=== PATIENT | male | born 1995 | race Two or more races ===

== ENCOUNTER 2018-02-02 15:15 | Inpatient (IN) | payer OTHER ==
[~2018-02-02] VITALS: Ht 165.1 cm; Wt 90.0 kg
[2018-02-02] MEDS ORDERED: SODIUM CHLORIDE 0.9% 1,000 ML IV ONE (15:29)
[2018-02-02 16:16] LABS: Basophils # (auto) 0 uL; Basophils % (auto) 0.2 % (0.0-2.0); Eosinophils # (auto) 0 uL; Hemoglobin 14.7 g/dL (13.5-17.5); Mean Corpuscular Hemoglobin 31.5 pg (28.0-32.0); Monocytes # (auto) 0.6 uL; Neutrophils # (auto) 13.2 uL; Neutrophils % (auto) 88.8 % (37.0-80.0); Platelet Count (auto) 285 10^3/uL (140-450); Red Blood Cells 4.67 10^6/uL (4.5-5.90); Red Cell Distribution Width 12.4 % (11.8-14.3); White Blood Cell 14.9 10^3/uL (4.4-10.8)
[2018-02-02 16:37] LABS: Albumin 4.5 g/dL (3.4-5.0); Calcium 9.3 mg/dL (8.5-10.1); Potassium 3.9 mmol/L (3.5-5.1)
[2018-02-02 16:38] LABS: INR 0.97 (0.9-1.15); Partial Thromboplastin Time 26.5 sec (23.78-33.04); Prothrombin Time 10.4 sec (9.27-12.13)
[2018-02-02 16:39] LABS: BUN/Creatinine Ratio 10.4; Bilirubin, Total 0.4 mg/dL (0.2-1.0); Total Protein 8.8 g/dL (6.4-8.2)
[2018-02-02] MEDS ORDERED: MORPHINE SULFATE 4 MG/ML SYR/VIAL IV ONE (16:45)
[2018-02-02] MEDS ORDERED: ONDANSETRON HCL 4 MG/2 ML VIAL IV ONE (16:45)
[2018-02-02] MEDS ORDERED: ENOXAPARIN SOD 40 MG/0.4 ML SYRINGE SC ONE (18:30)
[2018-02-02] MEDS: D5W/SOD CHL 0.45% 1,000 ML IV SCH ×2 (19:04→22:47)
[2018-02-02 21:15] VITALS: BP 128/55
[2018-02-02] MEDS: MORPHINE SULFATE 4 MG/ML SYR/VIAL IV PRN (21:26)
[2018-02-02 21:30] VITALS: BP 128/55
[2018-02-03] MEDS: MORPHINE SULFATE 4 MG/ML SYR/VIAL IV PRN ×5 (01:55→23:43)
[2018-02-03 05:39] VITALS: BP 96/46
[2018-02-03] MEDS: ENOXAPARIN SOD 40 MG/0.4 ML SYRINGE SC SCH ×2 (05:56→07:33)
[2018-02-03] MEDS: D5W/SOD CHL 0.45% 1,000 ML IV SCH ×3 (06:08→20:55)
[2018-02-03 06:40] VITALS: BP 107/53
[2018-02-03 09:00] VITALS: BP 120/72
[2018-02-03] MEDS: PANTOPRAZOLE 40 MG TAB PO SCH (10:13)
[2018-02-03 10:43] LABS: Basophils # (auto) 0 uL; Basophils % (auto) 0.3 % (0.0-2.0); Eosinophils # (auto) 0 uL; Eosinophils % (auto) 0.2 % (0.0-7.0); Hemoglobin 13.3 g/dL (13.5-17.5); Lymphocytes # (auto) 1.4 uL; Lymphocytes % (auto) 14.7 % (10.0-50.0); Mean Corpuscular Hgb Conc. 34.1 g/dL (32.0-36.0); Mean Corpuscular Volume 90.8 fL (80.0-100.0); Monocytes # (auto) 0.9 uL; Monocytes % (auto) 8.9 % (0.0-12.0); Neutrophils # (auto) 7.5 uL; Neutrophils % (auto) 75.9 % (37.0-80.0); Platelet Count (auto) 256 10^3/uL (140-450); Red Cell Distribution Width 12.2 % (11.8-14.3); White Blood Cell 9.8 10^3/uL (4.4-10.8)
[2018-02-03 13:00] VITALS: BP 108/55
[2018-02-03 17:00] VITALS: BP 114/62
[2018-02-03 22:00] VITALS: BP 128/74
[2018-02-04] MEDS: D5W/SOD CHL 0.45% 1,000 ML IV SCH ×3 (03:35→18:17)
[2018-02-04 05:02] VITALS: BP 103/47
[2018-02-04] MEDS ORDERED: fentaNYL CITRATE 100 MCG/2 ML VL ONE (05:29)
[2018-02-04] MEDS ORDERED: ROCURONIUM 10MG/ML 10ML VIAL IV ONE (05:29)
[2018-02-04] MEDS ORDERED: fentaNYL CITRATE 10 ML ONE (05:29)
[2018-02-04] MEDS ORDERED: SODIUM CHLORIDE LOCK 10 ML ONE (05:30)
[2018-02-04] MEDS ORDERED: ONDANSETRON HCL 4 MG/2 ML VIAL ONE (05:30)
[2018-02-04] MEDS ORDERED: PROPOFOL 10 MG/ML 20 ML IV ONE (05:30)
[2018-02-04] MEDS ORDERED: MIDAZOLAM HCL 1MG/1ML-2 ML VIAL ONE (05:30)
[2018-02-04] MEDS ORDERED: MEPERIDINE HCL (50 MG/ML) 1 ML VIAL ONE (05:34)
[2018-02-04 05:45] LABS: Basophils # (auto) 0 uL; Basophils % (auto) 0.3 % (0.0-2.0); Eosinophils # (auto) 0 uL; Eosinophils % (auto) 0.3 % (0.0-7.0); Hematocrit 39.9 % (41.0-53.0); Lymphocytes # (auto) 1.2 uL; Mean Corpuscular Hemoglobin 31.8 pg (28.0-32.0); Mean Corpuscular Hgb Conc. 35.1 g/dL (32.0-36.0); Mean Corpuscular Volume 90.6 fL (80.0-100.0); Monocytes % (auto) 7.4 % (0.0-12.0); Neutrophils # (auto) 11.4 uL; Nucleated Red Blood Cells % 0.1 %; Platelet Count (auto) 258 10^3/uL (140-450); Red Cell Distribution Width 12.4 % (11.8-14.3); White Blood Cell 13.8 10^3/uL (4.4-10.8)
[2018-02-04] MEDS ORDERED: ceFAZolin 1GM/50ML 100 ML IV ONE (05:52)
[2018-02-04] MEDS: MORPHINE SULFATE 4 MG/ML SYR/VIAL IV PRN ×2 (06:30→13:45)
[2018-02-04 06:56] LABS: Urine Bacteria NONE SEEN /hpf (None Seen); Urine Blood Negative /uL (Negative); Urine Specific Gravity 1.005 (1.001-1.035); Urine WBC <1 /hpf (0 - 3)
[2018-02-04 08:25] VITALS: BP 111/54
[2018-02-04] MEDS: ENOXAPARIN SOD 40 MG/0.4 ML SYRINGE SC SCH (10:00)
[2018-02-04] MEDS: PANTOPRAZOLE 40 MG TAB PO SCH (10:00)
[2018-02-04 11:50] VITALS: BP 113/61
[2018-02-04] MEDS: ACETAMINOPHEN 325 MG TAB PO PRN (13:06)
[2018-02-04] MEDS ORDERED: IOHEXOL 350 MG/ML 100ML IJ ONE (13:43)
[2018-02-04 16:00] VITALS: BP 117/63
[2018-02-04] MEDS: HYDROmorphone HCL 2 MG/ML VL IV PRN (20:07)
[2018-02-04] MEDS: PIPERACILLIN-TAZO 4.5GM 100 ML IV SCH (21:00)
[2018-02-04 21:18] VITALS: BP 118/64
[2018-02-04 21:57] VITALS: BP 184/64
[2018-02-05] MEDS: HYDROmorphone HCL 2 MG/ML VL IV PRN ×5 (01:22→22:34)
[2018-02-05] MEDS: ACETAMINOPHEN 325 MG TAB PO PRN ×2 (04:22→13:18)
[2018-02-05 05:12] VITALS: BP 121/69
[2018-02-05] MEDS: PIPERACILLIN-TAZO 4.5GM 100 ML IV SCH ×3 (05:16→21:12)
[2018-02-05 07:56] VITALS: BP 116/62
[2018-02-05 12:23] VITALS: BP 121/64
[2018-02-05 17:00] VITALS: BP 111/57
[2018-02-05 21:33] VITALS: BP 114/71
[2018-02-05] MEDS: ALBUTEROL SULF 2.5 MG/0.5ML(0.5%) NEB SOLN NEB SCH (22:14)
[2018-02-06] MEDS: HYDROmorphone HCL 2 MG/ML VL IV PRN ×5 (03:01→22:40)
[2018-02-06] MEDS: ALBUTEROL SULF 2.5 MG/0.5ML(0.5%) NEB SOLN NEB SCH ×7 (03:03→22:00)
[2018-02-06 05:17] VITALS: BP 114/65
[2018-02-06] MEDS: PIPERACILLIN-TAZO 4.5GM 100 ML IV SCH ×2 (05:38→14:25)
[2018-02-06 09:04] VITALS: BP 106/61
[2018-02-06 13:06] VITALS: BP 112/67
[2018-02-06] MEDS ORDERED: VANCOMYCIN PER PHARMACY 0 MG IV SCH (15:30)
[2018-02-06 17:00] VITALS: BP 120/65
[2018-02-06] MEDS ORDERED: ENOXAPARIN SOD 40 MG/0.4 ML SYRINGE SC ONE (17:30)
[2018-02-06] MEDS: FUROSEMIDE 20 MG/2 ML VIAL IV SCH (18:06)
[2018-02-06] MEDS: VANCOMYCIN 1,500 MG in D5W 5% 250 ML IV SCH (18:07)
[2018-02-06 22:00] VITALS: BP 110/68
[2018-02-06] MEDS ORDERED: ENOXAPARIN SOD 40 MG/0.4 ML SYRINGE SC SCH (22:00)
[2018-02-06] MEDS: POTASSIUM CHL 10 Meq TABLET PO SCH (22:43)
[2018-02-06] MEDS: CEFEPIME HYDROCHLORIDE 2 GM in SODIUM CHL 0.9% 50 ML IV SCH (22:44)
[2018-02-07] MEDS: ALBUTEROL SULF 2.5 MG/0.5ML(0.5%) NEB SOLN NEB SCH ×7 (00:29→23:36)
[2018-02-07 04:10] LABS: Basophils # (auto) 0 uL; Basophils % (auto) 0.5 % (0.0-2.0); Eosinophils # (auto) 0.3 uL; Eosinophils % (auto) 4.7 % (0.0-7.0); Hematocrit 32.6 % (41.0-53.0); Hemoglobin 11.3 g/dL (13.5-17.5); Lymphocytes # (auto) 1.2 uL; Lymphocytes % (auto) 22.4 % (10.0-50.0); Mean Corpuscular Hemoglobin 31.3 pg (28.0-32.0); Mean Corpuscular Hgb Conc. 34.8 g/dL (32.0-36.0); Mean Corpuscular Volume 90.2 fL (80.0-100.0); Monocytes # (auto) 0.6 uL; Monocytes % (auto) 11.7 % (0.0-12.0); Neutrophils # (auto) 3.3 uL; Neutrophils % (auto) 60.7 % (37.0-80.0); Platelet Count (auto) 262 10^3/uL (140-450); Red Blood Cells 3.61 10^6/uL (4.5-5.90); Red Cell Distribution Width 12.5 % (11.8-14.3); White Blood Cell 5.4 10^3/uL (4.4-10.8)
[2018-02-07 04:27] LABS: Potassium 3.8 mmol/L (3.5-5.1)
[2018-02-07 04:34] LABS: Albumin 3.1 g/dL (3.4-5.0); BUN/Creatinine Ratio 12.3; Bilirubin, Total 0.8 mg/dL (0.2-1.0); Calcium 8.6 mg/dL (8.5-10.1); Total Protein 7.7 g/dL (6.4-8.2)
[2018-02-07 05:00] VITALS: BP 118/69
[2018-02-07] MEDS: VANCOMYCIN 1,500 MG in D5W 5% 250 ML IV SCH ×2 (05:30→17:31)
[2018-02-07] MEDS: FUROSEMIDE 20 MG/2 ML VIAL IV SCH ×2 (06:00→18:03)
[2018-02-07] MEDS: CEFEPIME HYDROCHLORIDE 2 GM in SODIUM CHL 0.9% 50 ML IV SCH ×4 (06:00→23:13)
[2018-02-07] MEDS: HYDROmorphone HCL 2 MG/ML VL IV PRN ×4 (06:42→23:13)
[2018-02-07 07:52] VITALS: BP 113/63
[2018-02-07] MEDS: POTASSIUM CHL 10 Meq TABLET PO SCH ×2 (09:48→23:13)
[2018-02-07] MEDS: ENOXAPARIN SOD 40 MG/0.4 ML SYRINGE SC SCH (09:48)
[2018-02-07 11:48] VITALS: BP 110/65
[2018-02-07 17:00] VITALS: BP 112/68
[2018-02-07 17:53] VITALS: BP 112/68
[2018-02-07 22:00] VITALS: BP 103/66
[2018-02-08] MEDS: VANCOMYCIN 1,500 MG in D5W 5% 250 ML IV SCH ×3 (05:00→20:08)
[2018-02-08 05:17] VITALS: BP 119/64
[2018-02-08] MEDS: HYDROmorphone HCL 2 MG/ML VL IV PRN ×4 (05:21→20:08)
[2018-02-08] MEDS: FUROSEMIDE 20 MG/2 ML VIAL IV SCH ×2 (06:05→18:02)
[2018-02-08] MEDS: CEFEPIME HYDROCHLORIDE 2 GM in SODIUM CHL 0.9% 50 ML IV SCH ×3 (06:05→22:30)
[2018-02-08] MEDS: ALBUTEROL SULF 2.5 MG/0.5ML(0.5%) NEB SOLN NEB SCH ×3 (06:11→19:00)
[2018-02-08 09:09] VITALS: BP 118/74
[2018-02-08] MEDS: ENOXAPARIN SOD 40 MG/0.4 ML SYRINGE SC SCH (09:45)
[2018-02-08] MEDS: POTASSIUM CHL 10 Meq TABLET PO SCH ×2 (09:46→22:06)
[2018-02-08 13:29] VITALS: BP 118/70
[2018-02-08 17:13] VITALS: BP 109/68
[2018-02-08 21:30] VITALS: BP 116/65
[2018-02-09] MEDS: HYDROmorphone HCL 2 MG/ML VL IV PRN ×6 (00:47→21:18)
[2018-02-09 05:16] VITALS: BP 115/60
[2018-02-09] MEDS: ALBUTEROL SULF 2.5 MG/0.5ML(0.5%) NEB SOLN NEB SCH ×4 (05:43→19:33)
[2018-02-09] MEDS: FUROSEMIDE 20 MG/2 ML VIAL IV SCH ×2 (06:15→18:00)
[2018-02-09] MEDS: VANCOMYCIN 1,500 MG in D5W 5% 250 ML IV SCH ×2 (08:00→16:00)
[2018-02-09] MEDS: POTASSIUM CHL 10 Meq TABLET PO SCH ×2 (08:41→22:17)
[2018-02-09] MEDS: ENOXAPARIN SOD 40 MG/0.4 ML SYRINGE SC SCH (08:41)
[2018-02-09 09:00] VITALS: BP 117/68
[2018-02-09] MEDS: CEFEPIME HYDROCHLORIDE 2 GM in SODIUM CHL 0.9% 50 ML IV SCH ×2 (10:00→18:00)
[2018-02-09 13:00] VITALS: BP 114/64
[2018-02-09 17:00] VITALS: BP 114/67
[2018-02-09 22:00] VITALS: BP 118/72
[2018-02-10] MEDS: VANCOMYCIN 1,500 MG in D5W 5% 250 ML IV SCH ×3 (00:24→15:34)
[2018-02-10] MEDS: CEFEPIME HYDROCHLORIDE 2 GM in SODIUM CHL 0.9% 50 ML IV SCH ×3 (02:01→17:11)
[2018-02-10] MEDS: HYDROmorphone HCL 2 MG/ML VL IV PRN ×5 (02:01→20:11)
[2018-02-10 05:07] VITALS: BP 104/57
[2018-02-10] MEDS: FUROSEMIDE 20 MG/2 ML VIAL IV SCH ×2 (06:00→18:00)
[2018-02-10 07:41] VITALS: BP 107/67
[2018-02-10] MEDS: ALBUTEROL SULF 2.5 MG/0.5ML(0.5%) NEB SOLN NEB SCH ×5 (07:47→23:20)
[2018-02-10] MEDS: ENOXAPARIN SOD 40 MG/0.4 ML SYRINGE SC SCH (08:52)
[2018-02-10] MEDS: POTASSIUM CHL 10 Meq TABLET PO SCH ×2 (08:52→22:23)
[2018-02-10 16:47] VITALS: BP 112/61
[2018-02-10] MEDS: VANCOMYCIN 1,250 MG in D5W 5% 250 ML IV SCH (20:12)
[2018-02-10 22:00] VITALS: BP 117/88
[2018-02-11] VITALS (7 sets, daily range): BP systolic 102–113; BP diastolic 49–68
[2018-02-11] MEDS: HYDROmorphone HCL 2 MG/ML VL IV PRN ×6 (00:33→20:25)
[2018-02-11] MEDS: CEFEPIME HYDROCHLORIDE 2 GM in SODIUM CHL 0.9% 50 ML IV SCH ×3 (01:37→18:24)
[2018-02-11] MEDS: VANCOMYCIN 1,250 MG in D5W 5% 250 ML IV SCH ×3 (04:49→20:24)
[2018-02-11 05:58] LABS: Potassium 3.6 mmol/L (3.5-5.1)
[2018-02-11 06:03] LABS: BUN/Creatinine Ratio 23.2; Calcium 8.3 mg/dL (8.5-10.1)
[2018-02-11] MEDS: FUROSEMIDE 20 MG/2 ML VIAL IV SCH ×2 (06:14→18:17)
[2018-02-11] MEDS: ALBUTEROL SULF 2.5 MG/0.5ML(0.5%) NEB SOLN NEB SCH ×3 (06:41→18:05)
[2018-02-11] MEDS: POTASSIUM CHL 10 Meq TABLET PO SCH ×2 (08:45→20:24)
[2018-02-11] MEDS: ENOXAPARIN SOD 40 MG/0.4 ML SYRINGE SC SCH (08:45)
[2018-02-12] MEDS: HYDROmorphone HCL 2 MG/ML VL IV PRN ×6 (00:13→22:11)
[2018-02-12] MEDS: CEFEPIME HYDROCHLORIDE 2 GM in SODIUM CHL 0.9% 50 ML IV SCH ×3 (02:04→17:50)
[2018-02-12] MEDS: VANCOMYCIN 1,250 MG in D5W 5% 250 ML IV SCH ×3 (04:25→20:08)
[2018-02-12 05:00] VITALS: BP 116/52
[2018-02-12] MEDS: ALBUTEROL SULF 2.5 MG/0.5ML(0.5%) NEB SOLN NEB SCH ×4 (05:55→18:07)
[2018-02-12] MEDS: FUROSEMIDE 20 MG/2 ML VIAL IV SCH ×2 (06:00→17:51)
[2018-02-12] MEDS: ENOXAPARIN SOD 40 MG/0.4 ML SYRINGE SC SCH (08:36)
[2018-02-12] MEDS: POTASSIUM CHL 10 Meq TABLET PO SCH ×2 (08:37→21:53)
[2018-02-12 08:55] VITALS: BP 107/59
[2018-02-12 13:00] VITALS: BP 106/50
[2018-02-12 16:36] VITALS: BP 100/47
[2018-02-12] MEDS: LACTULOSE 20Gm/30ML SOLN PO SCH ×2 (21:53→21:59)
[2018-02-12 22:04] VITALS: BP 101/50
[2018-02-13] VITALS (8 sets, daily range): BP systolic 98–114; BP diastolic 40–62
[2018-02-13] MEDS: CEFEPIME HYDROCHLORIDE 2 GM in SODIUM CHL 0.9% 50 ML IV SCH ×2 (01:50→10:00)
[2018-02-13] MEDS: HYDROmorphone HCL 2 MG/ML VL IV PRN ×4 (03:00→22:21)
[2018-02-13] MEDS: VANCOMYCIN 1,250 MG in D5W 5% 250 ML IV SCH ×3 (04:08→20:38)
[2018-02-13] MEDS: FUROSEMIDE 20 MG/2 ML VIAL IV SCH (05:37)
[2018-02-13] MEDS: ALBUTEROL SULF 2.5 MG/0.5ML(0.5%) NEB SOLN NEB SCH ×3 (06:43→19:22)
[2018-02-13] MEDS: POTASSIUM CHL 10 Meq TABLET PO SCH ×2 (10:00→22:20)
[2018-02-13] MEDS: LACTULOSE 20Gm/30ML SOLN PO SCH ×2 (10:00→22:20)
[2018-02-13] MEDS: ENOXAPARIN SOD 40 MG/0.4 ML SYRINGE SC SCH (11:31)
[2018-02-14] MEDS: CEFEPIME HYDROCHLORIDE 2 GM in SODIUM CHL 0.9% 50 ML IV SCH ×4 (02:00→18:00)
[2018-02-14] MEDS: HYDROmorphone HCL 2 MG/ML VL IV PRN ×4 (02:43→20:49)
[2018-02-14] MEDS: VANCOMYCIN 1,250 MG in D5W 5% 250 ML IV SCH ×3 (04:26→20:37)
[2018-02-14 05:00] VITALS: BP 101/49
[2018-02-14] MEDS: FUROSEMIDE 20 MG/2 ML VIAL IV SCH ×3 (06:05→18:00)
[2018-02-14] MEDS: ALBUTEROL SULF 2.5 MG/0.5ML(0.5%) NEB SOLN NEB SCH ×4 (06:15→18:37)
[2018-02-14 09:00] VITALS: BP 111/57
[2018-02-14] MEDS: POTASSIUM CHL 10 Meq TABLET PO SCH ×2 (09:36→22:34)
[2018-02-14] MEDS: LACTULOSE 20Gm/30ML SOLN PO SCH ×2 (09:36→22:34)
[2018-02-14] MEDS: ENOXAPARIN SOD 40 MG/0.4 ML SYRINGE SC SCH (09:37)
[2018-02-14 13:00] VITALS: BP 105/55
[2018-02-14 17:00] VITALS: BP 125/74
[2018-02-14 20:00] VITALS: BP 101/50
[2018-02-14 22:00] VITALS: BP 101/50
[2018-02-15] MEDS: CEFEPIME HYDROCHLORIDE 2 GM in SODIUM CHL 0.9% 50 ML IV SCH ×3 (02:14→18:12)
[2018-02-15] MEDS: HYDROmorphone HCL 2 MG/ML VL IV PRN ×5 (02:46→21:45)
[2018-02-15] MEDS: VANCOMYCIN 1,250 MG in D5W 5% 250 ML IV SCH ×3 (04:19→20:23)
[2018-02-15 05:00] VITALS: BP 105/65
[2018-02-15] MEDS: ALBUTEROL SULF 2.5 MG/0.5ML(0.5%) NEB SOLN NEB SCH ×4 (05:45→18:55)
[2018-02-15] MEDS: FUROSEMIDE 20 MG/2 ML VIAL IV SCH ×2 (06:52→18:12)
[2018-02-15 08:57] VITALS: BP 100/49
[2018-02-15] MEDS: LACTULOSE 20Gm/30ML SOLN PO SCH ×2 (10:36→21:43)
[2018-02-15] MEDS: ENOXAPARIN SOD 40 MG/0.4 ML SYRINGE SC SCH (10:36)
[2018-02-15] MEDS: POTASSIUM CHL 10 Meq TABLET PO SCH ×2 (10:36→21:44)
[2018-02-15 13:00] VITALS: BP 99/44
[2018-02-15 17:00] VITALS: BP 103/57
[2018-02-15 20:00] VITALS: BP 111/68
[2018-02-15 21:42] VITALS: BP 111/68
[2018-02-16] MEDS: CEFEPIME HYDROCHLORIDE 2 GM in SODIUM CHL 0.9% 50 ML IV SCH ×3 (02:33→17:05)
[2018-02-16] MEDS: HYDROmorphone HCL 2 MG/ML VL IV PRN ×5 (03:17→21:30)
[2018-02-16] MEDS: VANCOMYCIN 1,250 MG in D5W 5% 250 ML IV SCH ×3 (04:15→21:29)
[2018-02-16 04:48] VITALS: BP 102/56
[2018-02-16] MEDS: ALBUTEROL SULF 2.5 MG/0.5ML(0.5%) NEB SOLN NEB SCH ×4 (06:05→20:28)
[2018-02-16] MEDS: FUROSEMIDE 20 MG/2 ML VIAL IV SCH ×2 (06:46→17:05)
[2018-02-16 08:00] VITALS: BP 101/56
[2018-02-16 09:00] VITALS: BP 101/56
[2018-02-16] MEDS: ENOXAPARIN SOD 40 MG/0.4 ML SYRINGE SC SCH (10:28)
[2018-02-16] MEDS: LACTULOSE 20Gm/30ML SOLN PO SCH ×2 (10:28→21:29)
[2018-02-16] MEDS: POTASSIUM CHL 10 Meq TABLET PO SCH ×2 (10:28→21:29)
[2018-02-16 13:00] VITALS: BP 99/51
[2018-02-16 17:00] VITALS: BP 110/57
[2018-02-16 22:00] VITALS: BP 104/60
[2018-02-17 00:41] VITALS: BP 110/57
[2018-02-17] MEDS: CEFEPIME HYDROCHLORIDE 2 GM in SODIUM CHL 0.9% 50 ML IV SCH ×3 (03:08→18:00)
[2018-02-17] MEDS: HYDROmorphone HCL 2 MG/ML VL IV PRN ×4 (03:33→20:58)
[2018-02-17 05:00] VITALS: BP 99/45
[2018-02-17] MEDS: VANCOMYCIN 1,250 MG in D5W 5% 250 ML IV SCH ×3 (05:38→21:04)
[2018-02-17] MEDS: FUROSEMIDE 20 MG/2 ML VIAL IV SCH ×2 (05:38→18:00)
[2018-02-17] MEDS: ALBUTEROL SULF 2.5 MG/0.5ML(0.5%) NEB SOLN NEB SCH ×5 (07:21→23:48)
[2018-02-17 08:51] VITALS: BP 117/58
[2018-02-17] MEDS: ENOXAPARIN SOD 40 MG/0.4 ML SYRINGE SC SCH (09:18)
[2018-02-17] MEDS: LACTULOSE 20Gm/30ML SOLN PO SCH ×2 (09:19→20:58)
[2018-02-17] MEDS: POTASSIUM CHL 10 Meq TABLET PO SCH ×2 (09:19→20:58)
[2018-02-17 13:00] VITALS: BP 106/55
[2018-02-17 16:43] VITALS: BP 97/53
[2018-02-17 19:57] LABS: Basophils # (auto) 0.1 uL; Eosinophils # (auto) 0.1 uL; Monocytes # (auto) 0.7 uL; Neutrophils # (auto) 1.8 uL
[2018-02-17 19:59] LABS: Basophils % (auto) 1.9 % (0.0-2.0); Eosinophils % (auto) 1.9 % (0.0-7.0); Hematocrit 34.7 % (41.0-53.0); Hemoglobin 11.8 g/dL (13.5-17.5); Lymphocytes # (auto) 1.4 uL; Lymphocytes % (auto) 33.9 % (10.0-50.0); Mean Corpuscular Hemoglobin 30.7 pg (28.0-32.0); Mean Corpuscular Hgb Conc. 33.9 g/dL (32.0-36.0); Mean Corpuscular Volume 90.3 fL (80.0-100.0); Monocytes % (auto) 16.5 % (0.0-12.0); Neutrophils % (auto) 45.8 % (37.0-80.0); Nucleated Red Blood Cells % 0.3 %; Platelet Count (auto) 452 10^3/uL (140-450); Red Blood Cells 3.84 10^6/uL (4.5-5.90)
[2018-02-17 20:12] LABS: Albumin 3.5 g/dL (3.4-5.0); Calcium 8.5 mg/dL (8.5-10.1); Potassium 3.9 mmol/L (3.5-5.1)
[2018-02-17 20:19] LABS: BUN/Creatinine Ratio 17.8; Bilirubin, Total 0.5 mg/dL (0.2-1.0); Total Protein 7.9 g/dL (6.4-8.2)
[2018-02-17 22:00] VITALS: BP 103/57
[2018-02-18] MEDS: CEFEPIME HYDROCHLORIDE 2 GM in SODIUM CHL 0.9% 50 ML IV SCH ×2 (01:06→09:58)
[2018-02-18] MEDS: HYDROmorphone HCL 2 MG/ML VL IV PRN ×5 (01:06→19:06)
[2018-02-18] MEDS: VANCOMYCIN 1,250 MG in D5W 5% 250 ML IV SCH (04:13)
[2018-02-18 05:16] VITALS: BP 96/55
[2018-02-18] MEDS: FUROSEMIDE 20 MG/2 ML VIAL IV SCH ×2 (05:30→17:54)
[2018-02-18] MEDS: ALBUTEROL SULF 2.5 MG/0.5ML(0.5%) NEB SOLN NEB SCH ×3 (07:12→18:39)
[2018-02-18 09:00] VITALS: BP 91/48
[2018-02-18] MEDS: LACTULOSE 20Gm/30ML SOLN PO SCH (09:58)
[2018-02-18] MEDS: POTASSIUM CHL 10 Meq TABLET PO SCH (09:58)
[2018-02-18] MEDS: ENOXAPARIN SOD 40 MG/0.4 ML SYRINGE SC SCH (09:59)
[2018-02-18 12:00] VITALS: BP 92/47
[2018-02-18 17:00] VITALS: BP 100/57
[2018-02-18 18:15] VITALS: BP 100/57
== END 2018-02-18 20:15 | disposition short-term general hospital (02) | DRG 533 ==
LOC: EDSEX 15:15 → EEVIPCON 15:15 → EDAGE 15:15 → ER 15:15 → OVERFLOW 15:16 → EEVIPCON 15:16 → EAST 21:10
PROVIDERS: ADMIT Internal Medicine; ATTEND Internal Medicine
DX: S72.301A Unspecified fracture of shaft of right femur, initial encounter for closed fracture (principal); I50.21 Acute systolic (congestive) heart failure; J98.11 Atelectasis; R09.02 Hypoxemia; W18.30XA Fall on same level, unspecified, initial encounter; Y92.322 Soccer field as the place of occurrence of the external cause; Y93.66 Activity, soccer; J98.8 Other specified respiratory disorders
CPT/HCPCS: 36415; 36600; 71045; 71275; 73700; 80048; 80053; 80202; 81001; 82805; 85025; 85610; 85730; 86850; 86900; 86901; 87040; 87070; 87205; 93005; 93306; 94640; 96361; 96374; 96375; A6257; G0378; J0690; J2250; J2405; J2543; J2704; J7060

== ENCOUNTER 2018-02-20 17:46 | Inpatient (IN) | payer OTHER ==
[2018-02-20] MEDS ORDERED: OXYCODONE W/ ACETAMINOPHEN 5/325MG TABLET PO PRN (20:00)
[2018-02-20 22:00] VITALS: BP 109/62
[2018-02-20] MEDS: SODIUM CHLOR 0.9% PF (SALINE LOCK) 10ML VIAL/SYR IV SCH (22:35)
[2018-02-21] MEDS: OXYCODONE W/ ACETAMINOPHEN 5/325MG TABLET PO PRN ×5 (02:51→23:45)
[2018-02-21 05:00] VITALS: BP 104/54
[2018-02-21] MEDS: SODIUM CHLOR 0.9% PF (SALINE LOCK) 10ML VIAL/SYR IV SCH ×3 (05:36→21:05)
[2018-02-21 08:00] VITALS: BP 111/51
[2018-02-21 08:40] VITALS: BP 111/51
[2018-02-21] MEDS: ENOXAPARIN SOD 40 MG/0.4 ML SYRINGE SC SCH (09:17)
[2018-02-21 12:49] VITALS: BP 104/46
[2018-02-21] MEDS ORDERED: CARISOPRODOL 350 MG TAB PO PRN (14:15)
[2018-02-21 16:38] VITALS: BP 107/49
[2018-02-21 22:00] VITALS: BP 107/66
[2018-02-22] MEDS: OXYCODONE W/ ACETAMINOPHEN 5/325MG TABLET PO PRN ×5 (03:47→22:01)
[2018-02-22 05:00] VITALS: BP 103/37
[2018-02-22] MEDS: SODIUM CHLOR 0.9% PF (SALINE LOCK) 10ML VIAL/SYR IV SCH ×3 (06:28→22:01)
[2018-02-22 09:04] VITALS: BP 103/44
[2018-02-22] MEDS: ENOXAPARIN SOD 40 MG/0.4 ML SYRINGE SC SCH (09:35)
[2018-02-22 13:27] VITALS: BP 99/57
[2018-02-22 16:42] VITALS: BP 104/41
[2018-02-22 22:00] VITALS: BP 98/53
[2018-02-23] MEDS: OXYCODONE W/ ACETAMINOPHEN 5/325MG TABLET PO PRN ×3 (02:55→13:23)
[2018-02-23 05:00] VITALS: BP 104/41
[2018-02-23] MEDS: SODIUM CHLOR 0.9% PF (SALINE LOCK) 10ML VIAL/SYR IV SCH ×2 (06:11→14:24)
[2018-02-23 08:00] VITALS: BP 103/55
[2018-02-23] MEDS: ENOXAPARIN SOD 40 MG/0.4 ML SYRINGE SC SCH (09:12)
[2018-02-23] MEDS ORDERED: HYDR-4683 PO (11:47)
[2018-02-23 13:00] VITALS: BP 100/58
[2018-02-23 15:26] VITALS: BP 103/55
== END 2018-02-23 15:30 | DRG 948 ==
LOC: EAST 17:46
PROVIDERS: ADMIT Internal Medicine; ATTEND Internal Medicine
DX: G89.18 Other acute postprocedural pain (principal); W18.39XA Other fall on same level, initial encounter; Y93.89 Activity, other specified; Y92.89 Other specified places as the place of occurrence of the external cause; S72.91XD Unspecified fracture of right femur, subsequent encounter for closed fracture with routine healing
CPT/HCPCS: 87081; 97110; 97116; 97163; 97530; G0378